=== PATIENT | male | born 1970 | race Caucasian/White ===

== ENCOUNTER 2017-07-18 10:56 | Outpatient (CLI) ==
--- NOTE | 2017-07-18 12:50 | CT ---
Exam: CT of the sinuses without intravenous contrast. Comparison: None available. Reason for exam: Chronic sinusitis. FINDINGS: No displaced facial fractures are seen. The frontal sinuses and sphenoid sinuses appear n ormally pneumatized. There is mucosal thickening in the ethmoid and left maxillary sinus. There is c omplete opacification of the right maxillary sinus. No inflammatory changes are seen within the intr aconal spaces. The mastoid air cells appear normally pneumatized. Impression: 1. Complete opacification of the right maxillary sinus consistent with chronic sinus disease. 2. Mucosal thickening in the ethmoid and left maxillary sinus. 3. The frontal sinuses, sphenoid sinuses, and mastoid air cells appear normally pneumatized.
== END 2017-07-18 10:57 | disposition home or self-care (01) ==
LOC: RAD 10:56
PROVIDERS: ATTEND Otolaryngology
DX: J32.9 Chronic sinusitis, unspecified (principal)

== ENCOUNTER 2017-07-31 07:32 | Day surgery (SDC) ==
[2017-07-31] MEDS ORDERED: NEO-SYNEPHRINE OT PRN (08:05)
[2017-07-31] MEDS ORDERED: LIDOCAINE 1% 20 ML MDV ID STA (08:05)
[2017-07-31] MEDS ORDERED: DIPRIVAN 20 ML VIAL IVP ONE (08:30)
[2017-07-31] MEDS ORDERED: SUBLIMAZE ONE (08:30)
[2017-07-31] MEDS ORDERED: ZOFRAN 4 MG/2 ML ONE (08:30)
[2017-07-31] MEDS ORDERED: VERSED ONE (08:30)
[2017-07-31] MEDS ORDERED: LIDOCAINE 1%-EPI 1:100,000 10 ML (SURGERY) INJ ONE (08:45)
[2017-07-31] MEDS ORDERED: GELFOAM SIZE 50 TP STA (09:10)
[2017-07-31] MEDS ORDERED: NEOSPORIN OINT 0.9 GM PACKET TP STA (09:12)
[2017-07-31 14:00] VITALS: BP 133/74; TEMP 97.6
--- NOTE | 2017-08-02 14:45 | OP ---
PREOPERATIVE DIAGNOSIS: SINUSITIS POSTOPERATIVE DIAGNOSIS: SINUSITIS OPERATION: BILATERAL FUNCTIONAL ENDOSCOPIC SINUS SURGERY. DESCRIPTION OF PROCEDURE: The patient was taken to surgery, placed on the table and general anesthesia was administered. 1% Xylocaine with 100,000 Epinephrine was injected in a classic septorhinoplasty technique. The left middle turbinate was then fractured medially and then using a 0 degree scope the anterior and posterior ethmoid air cells were uncapped. Natural ostomy was identified and it was likewise enlarged. A nasal antral window was also created on the inferior turbinate. Attention was then turned to the right side where again the middle turbinate was fractured medially and using a Zero degree scope, the anterior and posterior ethmoid air cells are then uncapped. The natural ostium was identified and was likewise enlarged. A nasal antral window was likewise created on the inferior turbinate and some of the turbinate has some thickened inflamed tissue which was removed with a double action rongeur. Gelfoam impregnated with antibiotic ointment was packed in each of the ethmoid areas and then a large rhino rocket was placed in each side of the nose. The patient' s mouth and oropharynx were irrigated copiously with Saline. He was extubated and returned to the recovery room in satisfactory condition. BROCK
== END 2017-07-31 13:29 | disposition home or self-care (01) ==
LOC: SURG 07:32
PROVIDERS: ATTEND Otolaryngology
DX: J32.0 Chronic maxillary sinusitis (principal); D14.0 Benign neoplasm of middle ear, nasal cavity and accessory sinuses
CPT/HCPCS: 31267

== ENCOUNTER 2017-08-07 09:37 | Outpatient (CLI) ==
--- NOTE | 2017-08-07 12:28 | CT ---
EXAM: CT maxillofacial/paranasal sinuses without contrast HISTORY: Postop with decreasing vision on the right COMPARISON: Sinus CT from 07/18/2017 TECHNIQUE: Helical axial CT of the paranasal sinuses was obtained without contrast with coronal and sagittal reconstructions. FINDINGS: There is a small defect in the lamina papyracea inferiorly on the right which is new [place] red to the previous examination. There is some inflammation of the intraconal and extraconal post sep jose r right orbital contents with no abscess. There is some mild thickening of the medial rectus muscl e as well on the right. There is a fair amount of opacification of the ethmoid air cells bilaterally. There is some high attenuation material seen in the ethmoid air cells consistent with postsurgical change. There is improved aeration of the right maxillary sinus compared to prior also with some hig h attenuation contents consistent with postsurgical changes as well. There is continued membrane thi ckening of the left maxillary sinus. This has increased compared to prior. Both ostiomeatal units a re occluded with membrane thickening. There is also opacification seen in the frontoethmoidal recess on the right. The sphenoid sinus is clear. There is postsurgical change seen involving the lateral wall of the right maxillary sinus. The nasal septum is minimally deviated to the right. There is no significant nasal spur. The cribrif orm plate and ethmoidal fovea are intact. There is no significant pneumatization of the turbinates. There are no Michael or Onodi cells seen. Visualized portions of the intracranial contents, temporal b ones and temporomandibular joints are normal in appearance. IMPRESSION: 1. 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 2. Membrane thickening and postsurgical changes as detailed above. Results discussed with Dr. Tadeo
== END 2017-08-07 09:38 | disposition home or self-care (01) ==
LOC: RAD 09:37
PROVIDERS: ATTEND Otolaryngology
DX: J32.9 Chronic sinusitis, unspecified (principal); Z98.890 Other specified postprocedural states